=== PATIENT | female | born 1985 | race Caucasian/White ===

== ENCOUNTER 2022-08-20 08:23 | Outpatient (CLI) | payer BC, SELFPAY | END 2022-08-20 08:24 | disposition home or self-care (01) | PROVIDERS: PCP Physician Assistant Medical; Visit Provider Physician Assistant Medical | DX: Z00.00 Encounter for general adult medical examination without abnormal findings (principal); E78.5 Hyperlipidemia, unspecified; F41.9 Anxiety disorder, unspecified; F32.A Depression, unspecified; Z13.29 Encounter for screening for other suspected endocrine disorder | CPT/HCPCS: 80053; 80061; 84443 ==

== ENCOUNTER 2023-08-05 10:34 | Outpatient (CLI) | payer BC, SELFPAY | END 2023-08-05 10:35 | disposition home or self-care (01) | PROVIDERS: PCP Physician Assistant Medical; Visit Provider Physician Assistant Medical | DX: Z00.00 Encounter for general adult medical examination without abnormal findings (principal); E66.01 Morbid (severe) obesity due to excess calories; E78.5 Hyperlipidemia, unspecified; F41.9 Anxiety disorder, unspecified; F32.A Depression, unspecified; Z13.29 Encounter for screening for other suspected endocrine disorder; Z13.6 Encounter for screening for cardiovascular disorders | CPT/HCPCS: 80053; 80061; 82306; 84443 ==

== ENCOUNTER 2023-10-07 19:21 | Outpatient (CLI) | payer BC, SELFPAY ==
--- NOTE | 2023-10-25 08:31 | W.PM.SLEEP ---
Sleep Study Details Details Interpreting Provider: Vidya Date of Sleep Study: 10/07/23 Sleep Study Details: STUDY TYPE:? Home unattended ? BMI:? 41.6 ORDERING PROVIDER:? Vidya INDICATION:? Concern about sleep apnea ? SLEEP SUMMARY:? 282.5 minutes monitored RESPIRATORY SUMMARY:? AHI 35.3, low oxygen 83 4.7% of study oxygen less than 90% 96.8% of study snoring present PERIODIC LIMB MOVEMENTS OF SLEEP:? Not recorded CARDIAC:? Range 60-115, mean 81.9 IMPRESSION:? Severe obstructive sleep apnea RECOMMENDATION: AutoSet CPAP. Dental appliance may be an option. Weight loss is recommended
== END 2023-10-07 19:22 | disposition home or self-care (01) ==
LOC: SLEEP 19:22
PROVIDERS: PCP Physician Assistant Medical; Visit Provider Otolaryngology
DX: G47.33 Obstructive sleep apnea (adult) (pediatric) (principal)
CPT/HCPCS: 95806

== ENCOUNTER 2023-11-06 10:55 | Outpatient (CLI) | payer BC, SELFPAY | END 2023-11-06 10:56 | disposition home or self-care (01) | PROVIDERS: PCP Physician Assistant Medical; Visit Provider Physician Assistant Medical | DX: E78.5 Hyperlipidemia, unspecified (principal) | CPT/HCPCS: 80061 ==

== ENCOUNTER 2023-11-28 08:43 | Outpatient (CLI) | payer BC, SELFPAY | END 2023-11-28 08:44 | disposition home or self-care (01) | LOC: NFLDREF 12-02 17:57 | PROVIDERS: PCP Physician Assistant Medical; Referring Provider Physician Assistant Medical; Visit Provider Physician Assistant Medical | DX: D72.829 Elevated white blood cell count, unspecified (principal); E78.5 Hyperlipidemia, unspecified | CPT/HCPCS: 80061; 80076; 81206; 81270 ==

== ENCOUNTER 2024-01-21 09:00 | Outpatient (RCR) | payer BC, SELFPAY ==
[2024-01-01 10:40] LABS: Basophils Percent Auto 0.1 % (0.0-3.0); Eosinophils Percent Auto 2.7 % (0.0-7.0); Hematocrit 36.5 % (33.0-51.0); Hemoglobin* 11.9 gm/dL (12.0-16.0); Immature Granulocytes Pct Auto 1.3 %; Lymphocytes Percent Auto 17.5 % (20-44); Mean Corpuscular HGB Conc 33 gm/dL (32-36); Mean Corpuscular Hemoglobin 27 pg (26-34); Mean Corpuscular Volume 82 fL (80-100); Monocytes Percent Auto 4.7 % (0.0-11.0); Neutrophils Percent Auto 73.7 % (42.0-72.0); Platelet Count* 303 K/uL (140-440); RDW Coefficient of Variation % 13.9 % (11.5-15.5); Red Blood Count 4.44 m/uL (4.00-5.20); White Blood Count* 11.81 K/uL (4.50-11.00)
[2024-01-01 10:41] LABS: Slide Review Reflex No
[2024-01-06 18:00] LABS: QuantBCR-ABL Major p210 Result Not Detected; QuantBCR-ABL Major p210 Source Not Provided
== END 2024-06-29 23:59 | disposition home or self-care (01) ==
LOC: CCIC 09:00
PROVIDERS: PCP Physician Assistant Medical; Visit Provider Internal Medicine Hematology & Oncology
DX: D72.829 Elevated white blood cell count, unspecified (principal)
CPT/HCPCS: 36415; 81206; 85025; 88184; 88185; 99202; 99203; 99204

== ENCOUNTER 2024-08-27 16:23 | Outpatient (CLI) | payer OTHER, SELFPAY | END 2024-08-27 16:24 | disposition home or self-care (01) | PROVIDERS: PCP Physician Assistant Medical; Visit Provider Physician Assistant Medical | DX: E78.5 Hyperlipidemia, unspecified (principal); D64.9 Anemia, unspecified; E66.01 Morbid (severe) obesity due to excess calories; F41.9 Anxiety disorder, unspecified | CPT/HCPCS: 80053; 80061; 84443 ==

== ENCOUNTER 2025-03-22 15:32 | Outpatient (CLI) | payer OTHER, SELFPAY | END 2025-03-22 15:33 | disposition home or self-care (01) | PROVIDERS: PCP Physician Assistant Medical; Visit Provider Physician Assistant Medical | DX: M25.50 Pain in unspecified joint (principal) | CPT/HCPCS: 84550; 86038; 86140; 86200; 86431; 86812 ==